=== PATIENT | female | born 1955 | race African-American/Black ===

== ENCOUNTER 2019-07-10 23:59 | Inpatient (IN) | payer MEDICAID ==
[~2019-07-10] VITALS: Ht 165.1 cm; Wt 106.1 kg
[~2019-07-10 23:59] MED LIST: ALLO100T57 PO; BISM262T15 PO; CARV12.545 PO; CLON0.2T PO; ISOS20TA57 PO; LIP40 PO; LOSA50TA41 PO; METO-396 PO
[2019-07-11] MEDS ORDERED: ACETAMINOPHEN 650MG SUPP PR STA (00:18)
[2019-07-11] MEDS ORDERED: SODIUM CHLORIDE 0.9% 1000ML BAG (SEPSIS BOLUS) IV ONE (00:30)
[2019-07-11] MEDS ORDERED: VANCOMYCIN 1 G PREMIX 200 ML IV ONE (00:30)
[2019-07-11] MEDS ORDERED: PIPERACILLIN/TAZ 3.375G PREMIX 50 ML IV ONE (00:30)
[2019-07-11 00:53] LABS: BASOPHILS % 1.3 % (0.0-2.0); EOSINOPHILS % 3.1 % (0.0-5.0); HEMATOCRIT. 26.2 % (36.0-48.0); HEMOGLOBIN. 8.6 g/dL (12.0-16.0); LYMPHOCYTES % 29.5 % (20.0-50.0); MEAN CORPUSCULAR HEMOGLOBIN 29.9 pg (28.0-32.0); MEAN CORPUSCULAR VOLUME 91.3 fL (81.0-99.0); MEAN PLATELET VOLUME 9.7 fl (7.4-10.4); NEUTROPHILS % 58.1 % (40.0-76.0); PLATELET 201 x1000/uL (130-400); RED BLOOD CELL COUNT 2.87 mill/uL (4.2-5.4); RED CELL DISTRIBUTION WIDTH 17.8 % (11.6-14.6)
[2019-07-11 00:56] LABS: PROTHROMBIN TIME 10.7 sec (9.6-11.0)
[2019-07-11 00:59] LABS: CHLORIDE 113 mEq/L (98-107)
[2019-07-11 01:39] LABS: CLARITY URINE TURBID (CLEAR); COLOR URINE YELLOW (YELLOW); KETONES URINE TRACE (NEGATIVE); LEUKOCYTE ESTERASE URINE 3+ (NEGATIVE); NITRITE URINE NEGATIVE (NEGATIVE); OCCULT BLOOD URINE 2+ (NEGATIVE); PH URINE 5.5 (4.5-8.0); PROTEIN URINE 3+ (NEGATIVE); SPECIFIC GRAVITY URINE 1.011 (1.005-1.030); UROBILINOGEN URINE 0.2 E.U./dL (0.2-1.0)
[2019-07-11] MEDS ORDERED: HYDROCODONE/ACETAMINOPHEN 5/325MG TABLET PO PRN (05:30)
[2019-07-11] MEDS ORDERED: NA PHOS,M-B/NA PHOS,DI-BA ENEMA 118ML PR PRN (05:30)
[2019-07-11] MEDS ORDERED: DIPHENHYDRAMINE 50MG/ML VIAL IV PRN (05:30)
[2019-07-11] MEDS ORDERED: MORPHINE SULFATE 2 MG/ML CPJ (NOT FOR IM USE) IV PRN (05:30)
[2019-07-11] MEDS ORDERED: MAGNESIUM/ALUMINUM HYDROXIDE/SIMETHICONE 30ML UDC PO PRN (05:30)
[2019-07-11] MEDS ORDERED: GUAIFENESIN 200MG/10ML SUGAR FREE UDC PO PRN (05:30)
[2019-07-11] MEDS ORDERED: ONDANSETRON HCL 4MG/2ML INJ IV PRN (05:30)
[2019-07-11] MEDS ORDERED: LORAZEPAM 2MG/ML CPJ IV PRN (05:30)
[2019-07-11] MEDS ORDERED: PIPERACILLIN/TAZ 3.375G PREMIX 50 ML IV SCH (05:30)
[2019-07-11] MEDS ORDERED: IPRATROPIUM/ALBUTEROL 0.5-3(2.5)MG/3ML NEB NEB PRN (05:30)
[2019-07-11 09:30] VITALS: BP 189/66
[2019-07-11 10:10] VITALS: BP 189/66
[2019-07-11] MEDS: ASPIRIN 81MG EC TABLET PO SCH (11:40)
[2019-07-11] MEDS: CLONIDINE 0.1MG TABLET PO PRN (11:41)
[2019-07-11] MEDS: ACETAMINOPHEN 325MG TABLET PO PRN ×2 (11:41→13:01)
[2019-07-11] MEDS: ENOXAPARIN 40MG/0.4ML SYR SUBCUT SCH (11:46)
[2019-07-11 12:00] VITALS: BP 184/64
[2019-07-11] MEDS ORDERED: VANCOMYCIN 1500MG in DEXTROSE 5% WATER 250ML IV SCH (12:00)
[2019-07-11] MEDS: SODIUM CHLORIDE 0.45% 1,000 ML IV SCH (12:53)
[2019-07-11] MEDS: PIPERACILLIN/TAZOBACTAM 2.25 G in DEXTROSE 5% WATER 50 ML IV SCH ×2 (15:14→21:48)
[2019-07-11 16:38] VITALS: BP 98/80
[2019-07-11] MEDS ORDERED: DEXTROSE 50% WATER 50ML SYRINGE IV PRN (18:45)
[2019-07-11 20:00] VITALS: BP 208/73
[2019-07-11] MEDS: INSULIN LISPRO 100 UNITS/ML SUBCUT SCH (21:49)
[2019-07-11] MEDS: ATORVASTATIN CALCIUM 20MG TABLET PO SCH (21:49)
[2019-07-11] MEDS: DOCUSATE SODIUM 250MG CAPSULE PO SCH (21:50)
[2019-07-11] MEDS: CLONIDINE 0.2MG TABLET PO SCH (21:51)
[2019-07-11] MEDS: BLOOD SUGAR DIAGNOSTIC STRIP TEST SCH (21:51)
[2019-07-11] MEDS: GABAPENTIN 100MG CAPSULE PO SCH (21:51)
[2019-07-11] MEDS: SODIUM CHLORIDE 0.9% INJ 3ML FLUSH IVF SCH (21:52)
[2019-07-11] MEDS: METOPROLOL TARTRATE 25MG TABLET PO SCH (21:53)
[2019-07-11] MEDS: HYDRALAZINE HCL 100MG TABLET PO SCH (21:54)
[2019-07-12] VITALS: BP 147/54
[2019-07-12] MEDS: SODIUM CHLORIDE 0.45% 1,000 ML IV SCH ×2 (01:17→21:06)
[2019-07-12 04:00] VITALS: BP 162/47
[2019-07-12] MEDS: PIPERACILLIN/TAZOBACTAM 2.25 G in DEXTROSE 5% WATER 50 ML IV SCH ×3 (06:45→21:06)
[2019-07-12] MEDS: BLOOD SUGAR DIAGNOSTIC STRIP TEST SCH ×4 (06:45→21:00)
[2019-07-12] MEDS: CLONIDINE 0.2MG TABLET PO SCH ×3 (06:45→20:57)
[2019-07-12] MEDS: HYDRALAZINE HCL 100MG TABLET PO SCH ×3 (06:45→20:58)
[2019-07-12] MEDS: SODIUM CHLORIDE 0.9% INJ 3ML FLUSH IVF SCH ×3 (06:46→21:08)
[2019-07-12 07:01] LABS: BASOPHILS % 1.1 % (0.0-2.0); EOSINOPHILS % 6.2 % (0.0-5.0); HEMATOCRIT. 26.1 % (36.0-48.0); HEMOGLOBIN. 8.5 g/dL (12.0-16.0); LYMPHOCYTES % 16.7 % (20.0-50.0); MEAN CORPUSCULAR HEMOGLOBIN 29.6 pg (28.0-32.0); MEAN CORPUSCULAR VOLUME 91.4 fL (81.0-99.0); MEAN PLATELET VOLUME 9.8 fl (7.4-10.4); MONOCYTES % 7.3 % (2.0-8.0); NEUTROPHILS % 68.7 % (40.0-76.0); PLATELET 179 x1000/uL (130-400); RED BLOOD CELL COUNT 2.85 mill/uL (4.2-5.4); RED CELL DISTRIBUTION WIDTH 17.7 % (11.6-14.6)
[2019-07-12 07:48] LABS: CHLORIDE 115 mEq/L (98-107)
[2019-07-12 07:58] LABS: T4 FREE 1.14 ng/dL (0.76-1.46)
[2019-07-12 08:00] LABS: HDL CHOLESTEROL 54 mg/dL (40-59)
[2019-07-12 08:01] LABS: LDL CHOLESTEROL 40 mg/dL (5-100)
[2019-07-12 08:12] VITALS: BP 194/70
[2019-07-12] MEDS: ASPIRIN 81MG EC TABLET PO SCH (09:12)
[2019-07-12] MEDS: DOCUSATE SODIUM 250MG CAPSULE PO SCH ×2 (09:12→20:57)
[2019-07-12] MEDS: AMLODIPINE 10MG TABLET PO SCH (09:13)
[2019-07-12] MEDS: METOPROLOL TARTRATE 25MG TABLET PO SCH ×2 (09:16→20:58)
[2019-07-12] MEDS: INSULIN LISPRO 100 UNITS/ML SUBCUT SCH ×4 (09:18→21:00)
[2019-07-12 12:00] VITALS: BP 165/83
[2019-07-12] MEDS: ENOXAPARIN 40MG/0.4ML SYR SUBCUT SCH (13:16)
[2019-07-12 16:00] VITALS: BP 151/41
[2019-07-12 20:00] VITALS: BP 169/65
[2019-07-12] MEDS: GABAPENTIN 100MG CAPSULE PO SCH (20:57)
[2019-07-12] MEDS: ATORVASTATIN CALCIUM 20MG TABLET PO SCH (20:57)
[2019-07-13 00:33] VITALS: BP 131/59
[2019-07-13 04:00] VITALS: BP 145/68
[2019-07-13] MEDS: PIPERACILLIN/TAZOBACTAM 2.25 G in DEXTROSE 5% WATER 50 ML IV SCH ×3 (05:43→21:23)
[2019-07-13] MEDS: CLONIDINE 0.2MG TABLET PO SCH ×3 (05:45→22:00)
[2019-07-13] MEDS: HYDRALAZINE HCL 100MG TABLET PO SCH ×3 (05:45→22:00)
[2019-07-13] MEDS: SODIUM CHLORIDE 0.9% INJ 3ML FLUSH IVF SCH ×3 (05:45→21:24)
[2019-07-13] MEDS: BLOOD SUGAR DIAGNOSTIC STRIP TEST SCH ×4 (05:46→21:26)
[2019-07-13 06:36] LABS: PHOSPHORUS 3.7 mg/dL (2.5-4.9)
[2019-07-13 06:49] LABS: BASOPHILS % 0.5 % (0.0-2.0); EOSINOPHILS % 1.5 % (0.0-5.0); HEMOGLOBIN. 9.3 g/dL (12.0-16.0); LYMPHOCYTES % 9.9 % (20.0-50.0); MEAN CORPUSCULAR HEMOGLOBIN 29.2 pg (28.0-32.0); MEAN CORPUSCULAR VOLUME 91.3 fL (81.0-99.0); MEAN PLATELET VOLUME 10.1 fl (7.4-10.4); MONOCYTES % 6.2 % (2.0-8.0); NEUTROPHILS % 81.9 % (40.0-76.0); PLATELET 199 x1000/uL (130-400); RED BLOOD CELL COUNT 3.18 mill/uL (4.2-5.4); RED CELL DISTRIBUTION WIDTH 17.9 % (11.6-14.6)
[2019-07-13 08:26] VITALS: BP 189/64
[2019-07-13] MEDS: METOPROLOL TARTRATE 25MG TABLET PO SCH ×2 (08:53→21:25)
[2019-07-13] MEDS: AMLODIPINE 10MG TABLET PO SCH ×2 (08:53→08:56)
[2019-07-13] MEDS: ASPIRIN 81MG EC TABLET PO SCH (08:53)
[2019-07-13] MEDS: DOCUSATE SODIUM 250MG CAPSULE PO SCH ×2 (08:53→21:25)
[2019-07-13] MEDS: PANTOT AC/MIN OIL/PET HY-PHL OINT (AQUAPHOR) TOP SCH (08:54)
[2019-07-13] MEDS: INSULIN LISPRO 100 UNITS/ML SUBCUT SCH ×4 (08:55→21:32)
[2019-07-13 12:23] VITALS: BP 183/66
[2019-07-13] MEDS: ENOXAPARIN 40MG/0.4ML SYR SUBCUT SCH (12:46)
[2019-07-13] MEDS: NYSTATIN POWDER 15GM TOP SCH ×2 (13:17→17:28)
[2019-07-13 16:05] VITALS: BP 115/55
[2019-07-13] MEDS: SODIUM CHLORIDE 0.45% 1,000 ML IV SCH (17:29)
[2019-07-13 20:00] VITALS: BP 183/64
[2019-07-13] MEDS: ATORVASTATIN CALCIUM 20MG TABLET PO SCH (21:24)
[2019-07-13] MEDS: GABAPENTIN 100MG CAPSULE PO SCH (21:24)
[2019-07-14] VITALS (7 sets, daily range): BP systolic 102–188; BP diastolic 52–72
[2019-07-14] MEDS: HYDRALAZINE HCL 100MG TABLET PO SCH ×3 (05:29→22:53)
[2019-07-14] MEDS: BLOOD SUGAR DIAGNOSTIC STRIP TEST SCH ×4 (05:30→21:00)
[2019-07-14] MEDS: CLONIDINE 0.2MG TABLET PO SCH (05:30)
[2019-07-14] MEDS: PIPERACILLIN/TAZOBACTAM 2.25 G in DEXTROSE 5% WATER 50 ML IV SCH ×3 (05:31→22:51)
[2019-07-14] MEDS: SODIUM CHLORIDE 0.9% INJ 3ML FLUSH IVF SCH ×3 (05:32→22:52)
[2019-07-14 07:59] LABS: EOSINOPHILS % 6.5 % (0.0-5.0); HEMATOCRIT. 26.4 % (36.0-48.0); HEMOGLOBIN. 8.6 g/dL (12.0-16.0); LYMPHOCYTES % 23.8 % (20.0-50.0); MEAN CORPUSCULAR HEMOGLOBIN 29.5 pg (28.0-32.0); MEAN PLATELET VOLUME 10.3 fl (7.4-10.4); MONOCYTES % 6.6 % (2.0-8.0); NEUTROPHILS % 62.1 % (40.0-76.0); PLATELET 186 x1000/uL (130-400); RED CELL DISTRIBUTION WIDTH 17.7 % (11.6-14.6)
[2019-07-14] MEDS: INSULIN LISPRO 100 UNITS/ML SUBCUT SCH ×4 (08:08→21:00)
[2019-07-14] MEDS: NYSTATIN POWDER 15GM TOP SCH ×3 (08:09→17:02)
[2019-07-14] MEDS: ASPIRIN 81MG EC TABLET PO SCH (08:09)
[2019-07-14] MEDS: PANTOT AC/MIN OIL/PET HY-PHL OINT (AQUAPHOR) TOP SCH (08:09)
[2019-07-14] MEDS: METOPROLOL TARTRATE 25MG TABLET PO SCH ×2 (08:10→22:51)
[2019-07-14] MEDS: DOCUSATE SODIUM 250MG CAPSULE PO SCH ×2 (08:10→22:52)
[2019-07-14] MEDS: AMLODIPINE 10MG TABLET PO SCH (08:10)
[2019-07-14 08:56] LABS: PHOSPHORUS 3.5 mg/dL (2.5-4.9)
[2019-07-14] MEDS: ENOXAPARIN 40MG/0.4ML SYR SUBCUT SCH (11:12)
[2019-07-14] MEDS: SODIUM CHLORIDE 0.45% 1,000 ML IV SCH (12:14)
[2019-07-14] MEDS: CLONIDINE 0.3MG TABLET PO SCH ×2 (14:13→22:51)
[2019-07-14] MEDS: ATORVASTATIN CALCIUM 20MG TABLET PO SCH (22:51)
[2019-07-14] MEDS: GABAPENTIN 100MG CAPSULE PO SCH (22:51)
[2019-07-15] VITALS (7 sets, daily range): BP systolic 161–198; BP diastolic 45–65
[2019-07-15] MEDS: CLONIDINE 0.1MG TABLET PO PRN (03:35)
[2019-07-15] MEDS: CLONIDINE 0.3MG TABLET PO SCH ×3 (05:37→21:38)
[2019-07-15] MEDS: PIPERACILLIN/TAZOBACTAM 2.25 G in DEXTROSE 5% WATER 50 ML IV SCH ×3 (05:37→21:29)
[2019-07-15] MEDS: SODIUM CHLORIDE 0.9% INJ 3ML FLUSH IVF SCH ×3 (05:38→21:36)
[2019-07-15] MEDS: BLOOD SUGAR DIAGNOSTIC STRIP TEST SCH ×4 (05:38→21:36)
[2019-07-15] MEDS: HYDRALAZINE HCL 100MG TABLET PO SCH ×3 (05:39→21:38)
[2019-07-15 07:07] LABS: EOSINOPHILS % 7.4 % (0.0-5.0); HEMATOCRIT. 23.4 % (36.0-48.0); HEMOGLOBIN. 7.6 g/dL (12.0-16.0); LYMPHOCYTES % 26.5 % (20.0-50.0); MEAN CORPUSCULAR HEMOGLOBIN 29.3 pg (28.0-32.0); MEAN CORPUSCULAR VOLUME 90.5 fL (81.0-99.0); MEAN PLATELET VOLUME 10.5 fl (7.4-10.4); MONOCYTES % 7.8 % (2.0-8.0); NEUTROPHILS % 57.3 % (40.0-76.0); PLATELET 173 x1000/uL (130-400); RED BLOOD CELL COUNT 2.59 mill/uL (4.2-5.4); RED CELL DISTRIBUTION WIDTH 18.2 % (11.6-14.6)
[2019-07-15 07:16] LABS: PHOSPHORUS 3.2 mg/dL (2.5-4.9)
[2019-07-15] MEDS: INSULIN LISPRO 100 UNITS/ML SUBCUT SCH ×4 (08:25→21:00)
[2019-07-15] MEDS: NYSTATIN POWDER 15GM TOP SCH ×3 (08:26→16:49)
[2019-07-15] MEDS: METOPROLOL TARTRATE 25MG TABLET PO SCH (08:26)
[2019-07-15] MEDS: ASPIRIN 81MG EC TABLET PO SCH (08:26)
[2019-07-15] MEDS: PANTOT AC/MIN OIL/PET HY-PHL OINT (AQUAPHOR) TOP SCH (08:26)
[2019-07-15] MEDS: AMLODIPINE 10MG TABLET PO SCH (08:27)
[2019-07-15] MEDS: DOCUSATE SODIUM 250MG CAPSULE PO SCH ×2 (08:27→21:38)
[2019-07-15] MEDS: ENOXAPARIN 40MG/0.4ML SYR SUBCUT SCH (10:59)
[2019-07-15] MEDS ORDERED: VANCOMYCIN 1 G PREMIX 200 ML IV SCH (13:00)
[2019-07-15] MEDS ORDERED: EPOETIN ALFA 10000UNITS/ML VIAL SUBCUT SCH (21:00)
[2019-07-15] MEDS: NIFEDIPINE XL 60MG TAB PO SCH (21:37)
[2019-07-15] MEDS: ATORVASTATIN CALCIUM 20MG TABLET PO SCH (21:38)
[2019-07-15] MEDS: METOPROLOL TARTRATE 50MG TABLET PO SCH (21:38)
[2019-07-15] MEDS: GABAPENTIN 100MG CAPSULE PO SCH (21:38)
[2019-07-16] VITALS: BP 108/62
[2019-07-16 04:00] VITALS: BP 157/49
[2019-07-16] MEDS: PIPERACILLIN/TAZOBACTAM 2.25 G in DEXTROSE 5% WATER 50 ML IV SCH ×3 (05:29→23:47)
[2019-07-16] MEDS: CLONIDINE 0.3MG TABLET PO SCH ×3 (06:26→22:30)
[2019-07-16] MEDS: BLOOD SUGAR DIAGNOSTIC STRIP TEST SCH ×4 (06:27→20:46)
[2019-07-16] MEDS: HYDRALAZINE HCL 100MG TABLET PO SCH ×3 (06:27→22:29)
[2019-07-16] MEDS: SODIUM CHLORIDE 0.9% INJ 3ML FLUSH IVF SCH ×2 (06:27→13:38)
[2019-07-16 08:00] VITALS: BP 154/43
[2019-07-16 08:09] LABS: BASOPHILS % 1.8 % (0.0-2.0); EOSINOPHILS % 8.5 % (0.0-5.0); HEMATOCRIT. 22.6 % (36.0-48.0); HEMOGLOBIN. 7.4 g/dL (12.0-16.0); LYMPHOCYTES % 33.2 % (20.0-50.0); MEAN CORPUSCULAR HEMOGLOBIN 29.5 pg (28.0-32.0); MEAN PLATELET VOLUME 10.4 fl (7.4-10.4); MONOCYTES % 7.1 % (2.0-8.0); NEUTROPHILS % 49.4 % (40.0-76.0); PLATELET 162 x1000/uL (130-400); RED BLOOD CELL COUNT 2.51 mill/uL (4.2-5.4); RED CELL DISTRIBUTION WIDTH 18.2 % (11.6-14.6)
[2019-07-16 08:42] LABS: PHOSPHORUS 3.3 mg/dL (2.5-4.9)
[2019-07-16] MEDS: PANTOT AC/MIN OIL/PET HY-PHL OINT (AQUAPHOR) TOP SCH (08:46)
[2019-07-16] MEDS: DOCUSATE SODIUM 250MG CAPSULE PO SCH ×2 (08:46→20:38)
[2019-07-16] MEDS: NYSTATIN POWDER 15GM TOP SCH ×3 (08:46→18:21)
[2019-07-16] MEDS: METOPROLOL TARTRATE 50MG TABLET PO SCH ×2 (08:47→20:37)
[2019-07-16] MEDS: ASPIRIN 81MG EC TABLET PO SCH (08:47)
[2019-07-16] MEDS: NIFEDIPINE XL 60MG TAB PO SCH ×2 (08:48→20:38)
[2019-07-16] MEDS: INSULIN LISPRO 100 UNITS/ML SUBCUT SCH ×4 (08:49→21:21)
[2019-07-16] MEDS: LOSARTAN POTASSIUM 25 MG TABLET PO SCH (10:35)
[2019-07-16] MEDS: ENOXAPARIN 40MG/0.4ML SYR SUBCUT SCH (10:36)
[2019-07-16 12:00] VITALS: BP 167/58
[2019-07-16 16:00] VITALS: BP 155/62
[2019-07-16 20:00] VITALS: BP 158/58
[2019-07-16] MEDS: ATORVASTATIN CALCIUM 20MG TABLET PO SCH (20:38)
[2019-07-16] MEDS: GABAPENTIN 100MG CAPSULE PO SCH (20:38)
[2019-07-17] VITALS: BP 167/70
[2019-07-17 04:00] VITALS: BP 167/56
[2019-07-17] MEDS: CLONIDINE 0.3MG TABLET PO SCH ×3 (05:32→21:52)
[2019-07-17] MEDS: HYDRALAZINE HCL 100MG TABLET PO SCH ×3 (05:32→21:52)
[2019-07-17] MEDS: BLOOD SUGAR DIAGNOSTIC STRIP TEST SCH ×4 (06:28→20:32)
[2019-07-17] MEDS: PIPERACILLIN/TAZOBACTAM 2.25 G in DEXTROSE 5% WATER 50 ML IV SCH (06:28)
[2019-07-17] MEDS: SODIUM CHLORIDE 0.9% INJ 3ML FLUSH IVF SCH ×4 (06:30→21:53)
[2019-07-17 08:00] VITALS: BP 154/63
[2019-07-17 08:05] LABS: BASOPHILS % 1.7 % (0.0-2.0); EOSINOPHILS % 7.6 % (0.0-5.0); HEMATOCRIT. 24.1 % (36.0-48.0); HEMOGLOBIN. 7.8 g/dL (12.0-16.0); LYMPHOCYTES % 27.2 % (20.0-50.0); MEAN CORPUSCULAR HEMOGLOBIN 29.2 pg (28.0-32.0); MEAN CORPUSCULAR VOLUME 89.7 fL (81.0-99.0); MEAN PLATELET VOLUME 10.4 fl (7.4-10.4); MONOCYTES % 7.1 % (2.0-8.0); NEUTROPHILS % 56.4 % (40.0-76.0); PLATELET 182 x1000/uL (130-400); RED BLOOD CELL COUNT 2.68 mill/uL (4.2-5.4); RED CELL DISTRIBUTION WIDTH 17.9 % (11.6-14.6)
[2019-07-17] MEDS: ASPIRIN 81MG EC TABLET PO SCH (08:09)
[2019-07-17] MEDS: METOPROLOL TARTRATE 50MG TABLET PO SCH ×2 (08:09→20:40)
[2019-07-17] MEDS: DOCUSATE SODIUM 250MG CAPSULE PO SCH ×2 (08:09→20:38)
[2019-07-17] MEDS: NIFEDIPINE XL 60MG TAB PO SCH ×2 (08:09→20:39)
[2019-07-17] MEDS: LOSARTAN POTASSIUM 25 MG TABLET PO SCH (08:10)
[2019-07-17] MEDS: INSULIN LISPRO 100 UNITS/ML SUBCUT SCH ×4 (08:16→20:37)
[2019-07-17 08:18] LABS: PHOSPHORUS 3.6 mg/dL (2.5-4.9)
[2019-07-17] MEDS: PANTOT AC/MIN OIL/PET HY-PHL OINT (AQUAPHOR) TOP SCH (08:45)
[2019-07-17] MEDS: NYSTATIN POWDER 15GM TOP SCH ×3 (08:45→17:17)
[2019-07-17] MEDS: ENOXAPARIN 40MG/0.4ML SYR SUBCUT SCH (10:01)
[2019-07-17] MEDS: CLONIDINE 0.1MG TABLET PO PRN (11:28)
[2019-07-17 12:00] VITALS: BP 167/58
[2019-07-17] MEDS: LEVOFLOXACIN 250MG PREMIX 50 ML IV SCH (12:19)
[2019-07-17 16:00] VITALS: BP 149/54
[2019-07-17 20:00] VITALS: BP 126/56
[2019-07-17] MEDS: ATORVASTATIN CALCIUM 20MG TABLET PO SCH (20:38)
[2019-07-17] MEDS: GABAPENTIN 100MG CAPSULE PO SCH (20:40)
[2019-07-18] VITALS: BP 130/51
[2019-07-18 04:00] VITALS: BP 163/50
[2019-07-18] MEDS: HYDRALAZINE HCL 100MG TABLET PO SCH (05:06)
[2019-07-18] MEDS: CLONIDINE 0.3MG TABLET PO SCH ×3 (05:07→22:43)
[2019-07-18] MEDS: SODIUM CHLORIDE 0.9% INJ 3ML FLUSH IVF SCH ×3 (05:11→22:36)
[2019-07-18] MEDS: BLOOD SUGAR DIAGNOSTIC STRIP TEST SCH ×4 (06:54→21:17)
[2019-07-18 07:09] LABS: EOSINOPHILS % 7.8 % (0.0-5.0); HEMATOCRIT. 23.7 % (36.0-48.0); HEMOGLOBIN. 7.8 g/dL (12.0-16.0); LYMPHOCYTES % 32.4 % (20.0-50.0); MEAN CORPUSCULAR HEMOGLOBIN 29.4 pg (28.0-32.0); MEAN CORPUSCULAR VOLUME 89.8 fL (81.0-99.0); MEAN PLATELET VOLUME 10.3 fl (7.4-10.4); MONOCYTES % 7.3 % (2.0-8.0); NEUTROPHILS % 51.5 % (40.0-76.0); PLATELET 195 x1000/uL (130-400); RED BLOOD CELL COUNT 2.64 mill/uL (4.2-5.4); RED CELL DISTRIBUTION WIDTH 17.6 % (11.6-14.6)
[2019-07-18 07:33] LABS: PHOSPHORUS 3.7 mg/dL (2.5-4.9)
[2019-07-18 08:00] VITALS: BP 170/64
[2019-07-18] MEDS: ASPIRIN 81MG EC TABLET PO SCH (08:36)
[2019-07-18] MEDS: DOCUSATE SODIUM 250MG CAPSULE PO SCH ×2 (08:36→21:16)
[2019-07-18] MEDS: LOSARTAN POTASSIUM 25 MG TABLET PO SCH (08:37)
[2019-07-18] MEDS: METOPROLOL TARTRATE 50MG TABLET PO SCH ×2 (08:37→18:16)
[2019-07-18] MEDS: PANTOT AC/MIN OIL/PET HY-PHL OINT (AQUAPHOR) TOP SCH (08:38)
[2019-07-18] MEDS: NYSTATIN POWDER 15GM TOP SCH ×3 (08:38→16:44)
[2019-07-18] MEDS: NIFEDIPINE XL 60MG TAB PO SCH ×2 (08:38→21:17)
[2019-07-18] MEDS: INSULIN LISPRO 100 UNITS/ML SUBCUT SCH ×4 (08:46→21:30)
[2019-07-18] MEDS: ENOXAPARIN 40MG/0.4ML SYR SUBCUT SCH (10:33)
[2019-07-18 12:00] VITALS: BP 180/64
[2019-07-18] MEDS: LEVOFLOXACIN 250MG PREMIX 50 ML IV SCH (12:46)
[2019-07-18] MEDS: CLONIDINE 0.1MG TABLET PO PRN (12:56)
[2019-07-18 16:00] VITALS: BP 173/68
[2019-07-18] MEDS ORDERED: AMLODIPINE 10MG TABLET PO STA (17:55)
[2019-07-18] MEDS ORDERED: LISINOPRIL 10MG TABLET PO STA (17:55)
[2019-07-18] MEDS ORDERED: CLONIDINE 0.2MG TABLET PO PRN ×2 (18:15)
[2019-07-18] MEDS: MINOXIDIL 2.5MG TABLET PO SCH (21:16)
[2019-07-18] MEDS: ATORVASTATIN CALCIUM 20MG TABLET PO SCH (21:16)
[2019-07-18] MEDS: GABAPENTIN 100MG CAPSULE PO SCH (21:17)
[2019-07-19] VITALS: BP 151/57
[2019-07-19 04:00] VITALS: BP 159/60
[2019-07-19] MEDS: METOPROLOL TARTRATE 50MG TABLET PO SCH ×2 (05:12→17:23)
[2019-07-19] MEDS: SODIUM CHLORIDE 0.9% INJ 3ML FLUSH IVF SCH ×3 (05:13→20:31)
[2019-07-19] MEDS: CLONIDINE 0.3MG TABLET PO SCH ×3 (05:35→23:05)
[2019-07-19 07:05] LABS: BASOPHILS % 0.9 % (0.0-2.0); EOSINOPHILS % 7.9 % (0.0-5.0); HEMATOCRIT. 23.6 % (36.0-48.0); HEMOGLOBIN. 7.6 g/dL (12.0-16.0); LYMPHOCYTES % 30.8 % (20.0-50.0); MEAN CORPUSCULAR HEMOGLOBIN 29.2 pg (28.0-32.0); MEAN CORPUSCULAR VOLUME 90.4 fL (81.0-99.0); MEAN PLATELET VOLUME 10.2 fl (7.4-10.4); MONOCYTES % 7.9 % (2.0-8.0); NEUTROPHILS % 52.5 % (40.0-76.0); PLATELET 211 x1000/uL (130-400); RED BLOOD CELL COUNT 2.61 mill/uL (4.2-5.4); RED CELL DISTRIBUTION WIDTH 17.7 % (11.6-14.6)
[2019-07-19 07:15] LABS: CHLORIDE 113 mEq/L (98-107)
[2019-07-19 07:25] LABS: PHOSPHORUS 3.7 mg/dL (2.5-4.9)
[2019-07-19] MEDS: BLOOD SUGAR DIAGNOSTIC STRIP TEST SCH ×4 (07:30→20:19)
[2019-07-19 08:00] VITALS: BP 173/61
[2019-07-19] MEDS: NIFEDIPINE XL 60MG TAB PO SCH ×2 (08:46→20:29)
[2019-07-19] MEDS: ASPIRIN 81MG EC TABLET PO SCH (08:46)
[2019-07-19] MEDS: MINOXIDIL 2.5MG TABLET PO SCH ×2 (08:46→20:29)
[2019-07-19] MEDS: PANTOT AC/MIN OIL/PET HY-PHL OINT (AQUAPHOR) TOP SCH (08:47)
[2019-07-19] MEDS: DOCUSATE SODIUM 250MG CAPSULE PO SCH ×2 (08:47→20:24)
[2019-07-19] MEDS: LOSARTAN POTASSIUM 25 MG TABLET PO SCH (08:47)
[2019-07-19] MEDS: NYSTATIN POWDER 15GM TOP SCH ×3 (08:47→16:41)
[2019-07-19] MEDS: INSULIN LISPRO 100 UNITS/ML SUBCUT SCH ×4 (08:48→20:19)
[2019-07-19] MEDS ORDERED: AMLODIPINE 10MG TABLET PO SCH (09:00)
[2019-07-19] MEDS ORDERED: LISINOPRIL 10MG TABLET PO SCH (09:00)
[2019-07-19] MEDS: ENOXAPARIN 40MG/0.4ML SYR SUBCUT SCH (10:20)
[2019-07-19] MEDS: LEVOFLOXACIN 250MG TABLET PO SCH (10:20)
[2019-07-19 12:00] VITALS: BP 167/55
[2019-07-19 16:00] VITALS: BP 166/53
[2019-07-19 20:00] VITALS: BP 135/50
[2019-07-19] MEDS: GABAPENTIN 100MG CAPSULE PO SCH (20:24)
[2019-07-19] MEDS: ATORVASTATIN CALCIUM 20MG TABLET PO SCH (20:29)
[2019-07-20] VITALS: BP 159/53
[2019-07-20 04:00] VITALS: BP 146/47
[2019-07-20] MEDS: SODIUM CHLORIDE 0.9% INJ 3ML FLUSH IVF SCH ×3 (05:15→22:15)
[2019-07-20] MEDS: METOPROLOL TARTRATE 50MG TABLET PO SCH ×2 (06:07→18:03)
[2019-07-20] MEDS: BLOOD SUGAR DIAGNOSTIC STRIP TEST SCH ×4 (06:08→20:40)
[2019-07-20] MEDS: CLONIDINE 0.3MG TABLET PO SCH ×3 (06:08→22:12)
[2019-07-20] MEDS: INSULIN LISPRO 100 UNITS/ML SUBCUT SCH ×4 (07:50→21:18)
[2019-07-20 08:00] VITALS: BP 158/47
[2019-07-20] MEDS: LOSARTAN POTASSIUM 25 MG TABLET PO SCH (09:28)
[2019-07-20] MEDS: ASPIRIN 81MG EC TABLET PO SCH (09:28)
[2019-07-20] MEDS: DOCUSATE SODIUM 250MG CAPSULE PO SCH ×2 (09:28→20:06)
[2019-07-20] MEDS: PANTOT AC/MIN OIL/PET HY-PHL OINT (AQUAPHOR) TOP SCH (09:33)
[2019-07-20] MEDS: NYSTATIN POWDER 15GM TOP SCH ×3 (09:33→18:02)
[2019-07-20] MEDS: NIFEDIPINE XL 60MG TAB PO SCH ×2 (11:08→20:07)
[2019-07-20] MEDS: MINOXIDIL 2.5MG TABLET PO SCH ×2 (11:08→20:07)
[2019-07-20] MEDS: ENOXAPARIN 40MG/0.4ML SYR SUBCUT SCH (11:09)
[2019-07-20 12:00] VITALS: BP 191/61
[2019-07-20] MEDS: LEVOFLOXACIN 250MG TABLET PO SCH (12:40)
[2019-07-20 16:00] VITALS: BP 197/56
[2019-07-20 20:00] VITALS: BP 144/49
[2019-07-20] MEDS: GABAPENTIN 100MG CAPSULE PO SCH (20:06)
[2019-07-20] MEDS: ATORVASTATIN CALCIUM 20MG TABLET PO SCH (20:06)
[2019-07-21] VITALS: BP 150/50
[2019-07-21 04:00] VITALS: BP 140/45
[2019-07-21] MEDS: CLONIDINE 0.3MG TABLET PO SCH ×3 (06:00→22:49)
[2019-07-21] MEDS: METOPROLOL TARTRATE 50MG TABLET PO SCH ×2 (06:01→17:40)
[2019-07-21] MEDS: BLOOD SUGAR DIAGNOSTIC STRIP TEST SCH ×4 (06:08→20:34)
[2019-07-21 07:09] LABS: BASOPHILS % 1.8 % (0.0-2.0); EOSINOPHILS % 7.8 % (0.0-5.0); HEMATOCRIT. 22.6 % (36.0-48.0); HEMOGLOBIN. 7.3 g/dL (12.0-16.0); LYMPHOCYTES % 38.8 % (20.0-50.0); MEAN CORPUSCULAR HEMOGLOBIN 29.2 pg (28.0-32.0); MEAN CORPUSCULAR VOLUME 90.8 fL (81.0-99.0); MEAN PLATELET VOLUME 9.5 fl (7.4-10.4); MONOCYTES % 7.6 % (2.0-8.0); PLATELET 242 x1000/uL (130-400); RED BLOOD CELL COUNT 2.48 mill/uL (4.2-5.4); RED CELL DISTRIBUTION WIDTH 17.7 % (11.6-14.6)
[2019-07-21 07:35] LABS: PHOSPHORUS 4.1 mg/dL (2.5-4.9)
[2019-07-21 08:00] VITALS: BP 181/89
[2019-07-21] MEDS: DOCUSATE SODIUM 250MG CAPSULE PO SCH ×2 (09:22→20:34)
[2019-07-21] MEDS: NIFEDIPINE XL 60MG TAB PO SCH ×2 (09:22→20:37)
[2019-07-21] MEDS: MINOXIDIL 2.5MG TABLET PO SCH ×2 (09:23→20:38)
[2019-07-21] MEDS: LOSARTAN POTASSIUM 25 MG TABLET PO SCH (09:23)
[2019-07-21] MEDS: ASPIRIN 81MG EC TABLET PO SCH (09:24)
[2019-07-21] MEDS: NYSTATIN POWDER 15GM TOP SCH ×3 (09:24→17:37)
[2019-07-21] MEDS: PANTOT AC/MIN OIL/PET HY-PHL OINT (AQUAPHOR) TOP SCH (09:24)
[2019-07-21] MEDS: INSULIN LISPRO 100 UNITS/ML SUBCUT SCH ×4 (09:29→20:34)
[2019-07-21] MEDS: CITRIC ACID/SODIUM CITRATE SOLN 30ML UDC PO SCH ×3 (10:48→17:37)
[2019-07-21] MEDS: LEVOFLOXACIN 250MG TABLET PO SCH (10:48)
[2019-07-21] MEDS: ENOXAPARIN 40MG/0.4ML SYR SUBCUT SCH (10:49)
[2019-07-21 12:00] VITALS: BP 169/52
[2019-07-21] MEDS ORDERED: SODIUM POLYSTYRENE SULFONATE 15 G/60 ML BOT PO SCH ×2 (14:00→16:45)
[2019-07-21 16:00] VITALS: BP 145/45
[2019-07-21 20:00] VITALS: BP 137/54
[2019-07-21] MEDS: GABAPENTIN 100MG CAPSULE PO SCH (20:34)
[2019-07-21] MEDS: ATORVASTATIN CALCIUM 20MG TABLET PO SCH (20:35)
[2019-07-21] MEDS: SODIUM CHLORIDE 0.9% INJ 3ML FLUSH IVF SCH (22:43)
[2019-07-22] VITALS: BP 155/59
[2019-07-22 04:00] VITALS: BP 153/55
[2019-07-22] MEDS: CLONIDINE 0.3MG TABLET PO SCH ×3 (05:22→21:51)
[2019-07-22] MEDS: METOPROLOL TARTRATE 50MG TABLET PO SCH ×2 (05:22→17:45)
[2019-07-22] MEDS: SODIUM CHLORIDE 0.9% INJ 3ML FLUSH IVF SCH ×3 (05:23→21:51)
[2019-07-22] MEDS: BLOOD SUGAR DIAGNOSTIC STRIP TEST SCH ×4 (06:14→21:50)
[2019-07-22 06:23] LABS: EOSINOPHILS % 5.1 % (0.0-5.0); HEMATOCRIT. 24.4 % (36.0-48.0); HEMOGLOBIN. 7.9 g/dL (12.0-16.0); LYMPHOCYTES % 24.8 % (20.0-50.0); MEAN CORPUSCULAR HEMOGLOBIN 29.4 pg (28.0-32.0); MEAN CORPUSCULAR VOLUME 91.2 fL (81.0-99.0); MEAN PLATELET VOLUME 9.3 fl (7.4-10.4); MONOCYTES % 7.1 % (2.0-8.0); PLATELET 275 x1000/uL (130-400); RED BLOOD CELL COUNT 2.67 mill/uL (4.2-5.4); RED CELL DISTRIBUTION WIDTH 17.9 % (11.6-14.6)
[2019-07-22 08:00] VITALS: BP 144/47
[2019-07-22] MEDS: NIFEDIPINE XL 60MG TAB PO SCH ×2 (08:41→21:05)
[2019-07-22] MEDS: CITRIC ACID/SODIUM CITRATE SOLN 30ML UDC PO SCH ×3 (08:41→17:00)
[2019-07-22] MEDS: DOCUSATE SODIUM 250MG CAPSULE PO SCH ×2 (08:42→20:50)
[2019-07-22] MEDS: LOSARTAN POTASSIUM 25 MG TABLET PO SCH (08:42)
[2019-07-22] MEDS: ASPIRIN 81MG EC TABLET PO SCH (08:42)
[2019-07-22] MEDS: MINOXIDIL 2.5MG TABLET PO SCH ×2 (08:42→21:05)
[2019-07-22] MEDS: INSULIN LISPRO 100 UNITS/ML SUBCUT SCH ×4 (08:45→21:27)
[2019-07-22] MEDS: NYSTATIN POWDER 15GM TOP SCH ×3 (08:46→17:44)
[2019-07-22] MEDS: PANTOT AC/MIN OIL/PET HY-PHL OINT (AQUAPHOR) TOP SCH (08:46)
[2019-07-22] MEDS: ENOXAPARIN 40MG/0.4ML SYR SUBCUT SCH (10:34)
[2019-07-22] MEDS: LEVOFLOXACIN 250MG TABLET PO SCH (10:34)
[2019-07-22 12:00] VITALS: BP 128/47
[2019-07-22 16:00] VITALS: BP 118/43
[2019-07-22 20:00] VITALS: BP 141/46
[2019-07-22] MEDS: ATORVASTATIN CALCIUM 20MG TABLET PO SCH (20:50)
[2019-07-22] MEDS: GABAPENTIN 100MG CAPSULE PO SCH (20:51)
[2019-07-22] MEDS ORDERED: EPOETIN ALFA 10000UNITS/ML VIAL SUBCUT SCH (21:00)
[2019-07-23] VITALS: BP 168/68
[2019-07-23 04:00] VITALS: BP 127/66
[2019-07-23] MEDS: SODIUM CHLORIDE 0.9% INJ 3ML FLUSH IVF SCH ×3 (05:51→21:31)
[2019-07-23] MEDS: METOPROLOL TARTRATE 50MG TABLET PO SCH ×2 (05:52→17:45)
[2019-07-23] MEDS: CLONIDINE 0.3MG TABLET PO SCH ×3 (05:53→21:31)
[2019-07-23] MEDS: BLOOD SUGAR DIAGNOSTIC STRIP TEST SCH ×4 (06:53→20:44)
[2019-07-23] MEDS: INSULIN LISPRO 100 UNITS/ML SUBCUT SCH ×4 (07:50→20:45)
[2019-07-23 08:00] VITALS: BP 124/42
[2019-07-23] MEDS: CITRIC ACID/SODIUM CITRATE SOLN 30ML UDC PO SCH ×3 (09:00→17:00)
[2019-07-23] MEDS: DOCUSATE SODIUM 250MG CAPSULE PO SCH ×2 (09:00→20:43)
[2019-07-23] MEDS: LOSARTAN POTASSIUM 25 MG TABLET PO SCH (10:07)
[2019-07-23] MEDS: DOCUSATE SODIUM 100MG CAPSULE PO PRN (10:07)
[2019-07-23] MEDS: MINOXIDIL 2.5MG TABLET PO SCH ×2 (10:08→20:44)
[2019-07-23] MEDS: NIFEDIPINE XL 60MG TAB PO SCH ×2 (10:08→20:44)
[2019-07-23] MEDS: LEVOFLOXACIN 250MG TABLET PO SCH (10:08)
[2019-07-23] MEDS: ASPIRIN 81MG EC TABLET PO SCH (10:08)
[2019-07-23] MEDS: NYSTATIN POWDER 15GM TOP SCH ×3 (10:09→17:45)
[2019-07-23] MEDS: PANTOT AC/MIN OIL/PET HY-PHL OINT (AQUAPHOR) TOP SCH (10:09)
[2019-07-23] MEDS: ENOXAPARIN 40MG/0.4ML SYR SUBCUT SCH (10:11)
[2019-07-23 12:00] VITALS: BP 144/50
[2019-07-23 16:00] VITALS: BP 121/49
[2019-07-23 20:00] VITALS: BP 145/52
[2019-07-23] MEDS: ATORVASTATIN CALCIUM 20MG TABLET PO SCH (20:43)
[2019-07-23] MEDS: GABAPENTIN 100MG CAPSULE PO SCH (20:44)
[2019-07-24] VITALS (7 sets, daily range): BP systolic 120–160; BP diastolic 39–66
[2019-07-24] MEDS: SODIUM CHLORIDE 0.9% INJ 3ML FLUSH IVF SCH ×3 (05:31→22:17)
[2019-07-24] MEDS: CLONIDINE 0.3MG TABLET PO SCH ×3 (05:32→22:00)
[2019-07-24] MEDS: METOPROLOL TARTRATE 50MG TABLET PO SCH ×2 (05:32→18:14)
[2019-07-24 06:32] LABS: BASOPHILS % 1.6 % (0.0-2.0); EOSINOPHILS % 5.4 % (0.0-5.0); HEMATOCRIT. 21.5 % (36.0-48.0); LYMPHOCYTES % 41.6 % (20.0-50.0); MEAN CORPUSCULAR HEMOGLOBIN 29.9 pg (28.0-32.0); MEAN CORPUSCULAR VOLUME 91.6 fL (81.0-99.0); MEAN PLATELET VOLUME 9.8 fl (7.4-10.4); MONOCYTES % 8.6 % (2.0-8.0); NEUTROPHILS % 42.8 % (40.0-76.0); PLATELET 236 x1000/uL (130-400); RED BLOOD CELL COUNT 2.34 mill/uL (4.2-5.4); RED CELL DISTRIBUTION WIDTH 18.6 % (11.6-14.6)
[2019-07-24] MEDS: BLOOD SUGAR DIAGNOSTIC STRIP TEST SCH ×4 (06:55→21:46)
[2019-07-24 07:24] LABS: PHOSPHORUS 4.3 mg/dL (2.5-4.9)
[2019-07-24] MEDS: INSULIN LISPRO 100 UNITS/ML SUBCUT SCH ×4 (07:50→21:00)
[2019-07-24] MEDS: CITRIC ACID/SODIUM CITRATE SOLN 30ML UDC PO SCH ×3 (09:00→17:00)
[2019-07-24] MEDS: DOCUSATE SODIUM 250MG CAPSULE PO SCH ×2 (09:44→21:43)
[2019-07-24] MEDS: ASPIRIN 81MG EC TABLET PO SCH (09:44)
[2019-07-24] MEDS: NIFEDIPINE XL 60MG TAB PO SCH ×2 (09:44→21:43)
[2019-07-24] MEDS: LOSARTAN POTASSIUM 25 MG TABLET PO SCH (09:44)
[2019-07-24] MEDS: PANTOT AC/MIN OIL/PET HY-PHL OINT (AQUAPHOR) TOP SCH (09:45)
[2019-07-24] MEDS: NYSTATIN POWDER 15GM TOP SCH ×3 (09:45→17:08)
[2019-07-24] MEDS: MINOXIDIL 2.5MG TABLET PO SCH ×2 (09:45→21:45)
[2019-07-24] MEDS: ENOXAPARIN 40MG/0.4ML SYR SUBCUT SCH (11:00)
[2019-07-24] MEDS: LEVOFLOXACIN 250MG TABLET PO SCH (11:29)
[2019-07-24] MEDS: GABAPENTIN 100MG CAPSULE PO SCH (21:44)
[2019-07-24] MEDS: ATORVASTATIN CALCIUM 20MG TABLET PO SCH (21:44)
[2019-07-25] VITALS: BP 132/44
[2019-07-25 00:07] VITALS: BP 132/44
[2019-07-25 00:42] VITALS: BP 132/43
[2019-07-25 01:47] VITALS: BP 142/40
[2019-07-25 03:26] LABS: BASOPHILS % 2.2 % (0.0-2.0); EOSINOPHILS % 4.9 % (0.0-5.0); HEMATOCRIT. 24.5 % (36.0-48.0); HEMOGLOBIN. 8.1 g/dL (12.0-16.0); LYMPHOCYTES % 38.5 % (20.0-50.0); MEAN CORPUSCULAR HEMOGLOBIN 29.4 pg (28.0-32.0); MEAN CORPUSCULAR VOLUME 89.3 fL (81.0-99.0); MEAN PLATELET VOLUME 9.2 fl (7.4-10.4); MONOCYTES % 8.5 % (2.0-8.0); NEUTROPHILS % 45.9 % (40.0-76.0); PLATELET 244 x1000/uL (130-400); RED BLOOD CELL COUNT 2.75 mill/uL (4.2-5.4); RED CELL DISTRIBUTION WIDTH 18.5 % (11.6-14.6)
[2019-07-25 03:40] LABS: PHOSPHORUS 4.1 mg/dL (2.5-4.9)
[2019-07-25 04:00] VITALS: BP 145/43
[2019-07-25] MEDS: CLONIDINE 0.3MG TABLET PO SCH ×3 (05:56→22:57)
[2019-07-25] MEDS: METOPROLOL TARTRATE 50MG TABLET PO SCH ×2 (05:57→17:18)
[2019-07-25] MEDS: SODIUM CHLORIDE 0.9% INJ 3ML FLUSH IVF SCH ×3 (06:03→21:05)
[2019-07-25] MEDS: BLOOD SUGAR DIAGNOSTIC STRIP TEST SCH ×4 (06:36→20:54)
[2019-07-25] MEDS: INSULIN LISPRO 100 UNITS/ML SUBCUT SCH ×4 (07:50→20:58)
[2019-07-25] MEDS: LOSARTAN POTASSIUM 25 MG TABLET PO SCH ×2 (08:59→09:00)
[2019-07-25] MEDS: ASPIRIN 81MG EC TABLET PO SCH (08:59)
[2019-07-25] MEDS: DOCUSATE SODIUM 100MG CAPSULE PO PRN (08:59)
[2019-07-25] MEDS: MINOXIDIL 2.5MG TABLET PO SCH ×2 (09:00→21:03)
[2019-07-25] MEDS: NIFEDIPINE XL 60MG TAB PO SCH ×2 (09:00→21:02)
[2019-07-25] MEDS: CITRIC ACID/SODIUM CITRATE SOLN 30ML UDC PO SCH ×3 (09:02→12:44)
[2019-07-25] MEDS: NYSTATIN POWDER 15GM TOP SCH ×3 (09:02→16:16)
[2019-07-25] MEDS: DOCUSATE SODIUM 250MG CAPSULE PO SCH ×2 (09:04→20:50)
[2019-07-25] MEDS: PANTOT AC/MIN OIL/PET HY-PHL OINT (AQUAPHOR) TOP SCH (09:05)
[2019-07-25] MEDS: ENOXAPARIN 40MG/0.4ML SYR SUBCUT SCH (11:27)
[2019-07-25 20:00] VITALS: BP 149/47
[2019-07-25] MEDS: ATORVASTATIN CALCIUM 20MG TABLET PO SCH (20:49)
[2019-07-25] MEDS: GABAPENTIN 100MG CAPSULE PO SCH (20:50)
[2019-07-26] VITALS: BP 143/52
[2019-07-26 04:00] VITALS: BP 144/48
[2019-07-26] MEDS: METOPROLOL TARTRATE 50MG TABLET PO SCH ×2 (05:15→17:00)
[2019-07-26] MEDS: CLONIDINE 0.3MG TABLET PO SCH ×3 (05:17→21:21)
[2019-07-26] MEDS: SODIUM CHLORIDE 0.9% INJ 3ML FLUSH IVF SCH ×3 (05:20→21:40)
[2019-07-26] MEDS: BLOOD SUGAR DIAGNOSTIC STRIP TEST SCH ×4 (06:22→21:28)
[2019-07-26 06:25] LABS: BASOPHILS % 1.5 % (0.0-2.0); EOSINOPHILS % 6.2 % (0.0-5.0); HEMATOCRIT. 24.3 % (36.0-48.0); HEMOGLOBIN. 7.9 g/dL (12.0-16.0); LYMPHOCYTES % 33.8 % (20.0-50.0); MEAN CORPUSCULAR HEMOGLOBIN 29.3 pg (28.0-32.0); MEAN PLATELET VOLUME 9.3 fl (7.4-10.4); MONOCYTES % 7.2 % (2.0-8.0); NEUTROPHILS % 51.3 % (40.0-76.0); PLATELET 225 x1000/uL (130-400); RED CELL DISTRIBUTION WIDTH 18.5 % (11.6-14.6)
[2019-07-26 06:40] LABS: PHOSPHORUS 4.1 mg/dL (2.5-4.9)
[2019-07-26 08:00] VITALS: BP_SYST 134; BP_SYST 150; BP_DIAS 42; BP_DIAS 53
[2019-07-26] MEDS: MINOXIDIL 2.5MG TABLET PO SCH ×2 (08:49→21:21)
[2019-07-26] MEDS: NIFEDIPINE XL 60MG TAB PO SCH ×2 (08:49→21:21)
[2019-07-26] MEDS: LOSARTAN POTASSIUM 25 MG TABLET PO SCH (08:50)
[2019-07-26] MEDS: DOCUSATE SODIUM 250MG CAPSULE PO SCH ×2 (08:50→21:21)
[2019-07-26] MEDS: ASPIRIN 81MG EC TABLET PO SCH (08:50)
[2019-07-26] MEDS: INSULIN LISPRO 100 UNITS/ML SUBCUT SCH ×4 (08:52→21:18)
[2019-07-26] MEDS: NYSTATIN POWDER 15GM TOP SCH ×3 (08:53→18:04)
[2019-07-26] MEDS: PANTOT AC/MIN OIL/PET HY-PHL OINT (AQUAPHOR) TOP SCH (08:53)
[2019-07-26] MEDS: CITRIC ACID/SODIUM CITRATE SOLN 30ML UDC PO SCH ×3 (09:00→17:00)
[2019-07-26] MEDS: ENOXAPARIN 40MG/0.4ML SYR SUBCUT SCH (10:34)
[2019-07-26 12:00] VITALS: BP 134/42
[2019-07-26 16:00] VITALS: BP 131/42
[2019-07-26 20:00] VITALS: BP 141/51
[2019-07-26] MEDS: GABAPENTIN 100MG CAPSULE PO SCH (21:21)
[2019-07-26] MEDS: ATORVASTATIN CALCIUM 20MG TABLET PO SCH (21:21)
[2019-07-27] VITALS: BP 128/50
[2019-07-27 04:00] VITALS: BP 146/55
[2019-07-27] MEDS: SODIUM CHLORIDE 0.9% INJ 3ML FLUSH IVF SCH ×3 (06:12→22:00)
[2019-07-27] MEDS: CLONIDINE 0.3MG TABLET PO SCH ×2 (06:13→13:17)
[2019-07-27] MEDS: METOPROLOL TARTRATE 50MG TABLET PO SCH ×2 (06:13→18:00)
[2019-07-27 06:42] LABS: BASOPHILS % 1.3 % (0.0-2.0); HEMATOCRIT. 25.3 % (36.0-48.0); HEMOGLOBIN. 8.4 g/dL (12.0-16.0); LYMPHOCYTES % 40.8 % (20.0-50.0); MEAN CORPUSCULAR HEMOGLOBIN 29.6 pg (28.0-32.0); MEAN CORPUSCULAR VOLUME 89.3 fL (81.0-99.0); MEAN PLATELET VOLUME 9.2 fl (7.4-10.4); MONOCYTES % 7.9 % (2.0-8.0); PLATELET 232 x1000/uL (130-400); RED BLOOD CELL COUNT 2.84 mill/uL (4.2-5.4); RED CELL DISTRIBUTION WIDTH 19.2 % (11.6-14.6)
[2019-07-27 07:15] LABS: PHOSPHORUS 4.2 mg/dL (2.5-4.9)
[2019-07-27] MEDS: BLOOD SUGAR DIAGNOSTIC STRIP TEST SCH ×4 (07:49→21:00)
[2019-07-27] MEDS: DOCUSATE SODIUM 250MG CAPSULE PO SCH ×2 (09:00→21:00)
[2019-07-27] MEDS: ASPIRIN 81MG EC TABLET PO SCH (09:01)
[2019-07-27] MEDS: LOSARTAN POTASSIUM 25 MG TABLET PO SCH (09:01)
[2019-07-27] MEDS: MINOXIDIL 2.5MG TABLET PO SCH (09:02)
[2019-07-27] MEDS: NIFEDIPINE XL 60MG TAB PO SCH ×2 (09:02→21:00)
[2019-07-27] MEDS: PANTOT AC/MIN OIL/PET HY-PHL OINT (AQUAPHOR) TOP SCH (09:02)
[2019-07-27] MEDS: CITRIC ACID/SODIUM CITRATE SOLN 30ML UDC PO SCH ×3 (09:03→17:00)
[2019-07-27] MEDS: NYSTATIN POWDER 15GM TOP SCH ×3 (09:03→17:00)
[2019-07-27] MEDS: INSULIN LISPRO 100 UNITS/ML SUBCUT SCH ×3 (09:12→18:21)
[2019-07-27] MEDS: ENOXAPARIN 40MG/0.4ML SYR SUBCUT SCH (10:57)
[2019-07-27 20:00] VITALS: BP 149/41
[2019-07-27] MEDS: GABAPENTIN 100MG CAPSULE PO SCH (21:00)
[2019-07-28] VITALS: BP 125/49
[2019-07-28] MEDS: CLONIDINE 0.3MG TABLET PO SCH ×4 (03:57→22:57)
[2019-07-28] MEDS: MINOXIDIL 2.5MG TABLET PO SCH ×3 (03:58→21:10)
[2019-07-28] MEDS: ATORVASTATIN CALCIUM 20MG TABLET PO SCH ×2 (03:58→21:10)
[2019-07-28 04:00] VITALS: BP 147/53
[2019-07-28] MEDS: INSULIN LISPRO 100 UNITS/ML SUBCUT SCH ×5 (04:05→21:16)
[2019-07-28] MEDS: METOPROLOL TARTRATE 50MG TABLET PO SCH ×2 (06:20→17:54)
[2019-07-28] MEDS: SODIUM CHLORIDE 0.9% INJ 3ML FLUSH IVF SCH ×3 (06:22→22:00)
[2019-07-28] MEDS: BLOOD SUGAR DIAGNOSTIC STRIP TEST SCH ×4 (06:22→21:10)
[2019-07-28 07:06] LABS: BASOPHILS % 1.3 % (0.0-2.0); EOSINOPHILS % 6.9 % (0.0-5.0); HEMATOCRIT. 25.5 % (36.0-48.0); HEMOGLOBIN. 8.2 g/dL (12.0-16.0); LYMPHOCYTES % 34.3 % (20.0-50.0); MEAN CORPUSCULAR HEMOGLOBIN 29.1 pg (28.0-32.0); MEAN CORPUSCULAR VOLUME 90.3 fL (81.0-99.0); MEAN PLATELET VOLUME 9.5 fl (7.4-10.4); MONOCYTES % 6.9 % (2.0-8.0); NEUTROPHILS % 50.6 % (40.0-76.0); PLATELET 238 x1000/uL (130-400); RED BLOOD CELL COUNT 2.82 mill/uL (4.2-5.4); RED CELL DISTRIBUTION WIDTH 19.5 % (11.6-14.6)
[2019-07-28 08:00] VITALS: BP 132/42
[2019-07-28] MEDS: LOSARTAN POTASSIUM 25 MG TABLET PO SCH (08:54)
[2019-07-28] MEDS: CITRIC ACID/SODIUM CITRATE SOLN 30ML UDC PO SCH ×3 (08:54→17:00)
[2019-07-28] MEDS: PANTOT AC/MIN OIL/PET HY-PHL OINT (AQUAPHOR) TOP SCH (08:55)
[2019-07-28] MEDS: NIFEDIPINE XL 60MG TAB PO SCH ×2 (08:55→21:09)
[2019-07-28] MEDS: NYSTATIN POWDER 15GM TOP SCH ×3 (08:55→17:26)
[2019-07-28 08:57] LABS: PHOSPHORUS 3.9 mg/dL (2.5-4.9)
[2019-07-28] MEDS: ASPIRIN 81MG EC TABLET PO SCH (08:57)
[2019-07-28] MEDS: DOCUSATE SODIUM 250MG CAPSULE PO SCH ×2 (08:57→21:09)
[2019-07-28] MEDS: ENOXAPARIN 40MG/0.4ML SYR SUBCUT SCH (10:44)
[2019-07-28 12:00] VITALS: BP 176/57
[2019-07-28 14:00] VITALS: BP 137/45
[2019-07-28 20:00] VITALS: BP 136/47
[2019-07-28] MEDS: GABAPENTIN 100MG CAPSULE PO SCH (21:09)
[2019-07-29] VITALS: BP 151/43
[2019-07-29 04:00] VITALS: BP 149/42
[2019-07-29] MEDS: METOPROLOL TARTRATE 50MG TABLET PO SCH ×2 (06:33→17:49)
[2019-07-29] MEDS: BLOOD SUGAR DIAGNOSTIC STRIP TEST SCH ×4 (06:33→20:06)
[2019-07-29] MEDS: CLONIDINE 0.3MG TABLET PO SCH ×3 (06:33→21:55)
[2019-07-29] MEDS: SODIUM CHLORIDE 0.9% INJ 3ML FLUSH IVF SCH ×3 (06:34→21:53)
[2019-07-29 07:53] LABS: BASOPHILS % 1.3 % (0.0-2.0); EOSINOPHILS % 6.9 % (0.0-5.0); HEMATOCRIT. 25.4 % (36.0-48.0); HEMOGLOBIN. 8.2 g/dL (12.0-16.0); LYMPHOCYTES % 38.2 % (20.0-50.0); MEAN CORPUSCULAR HEMOGLOBIN 29.2 pg (28.0-32.0); MEAN CORPUSCULAR VOLUME 90.5 fL (81.0-99.0); MEAN PLATELET VOLUME 9.9 fl (7.4-10.4); MONOCYTES % 7.6 % (2.0-8.0); PLATELET 203 x1000/uL (130-400); RED BLOOD CELL COUNT 2.81 mill/uL (4.2-5.4); RED CELL DISTRIBUTION WIDTH 19.4 % (11.6-14.6)
[2019-07-29 08:00] VITALS: BP 155/45
[2019-07-29] MEDS: CITRIC ACID/SODIUM CITRATE SOLN 30ML UDC PO SCH ×3 (08:25→17:00)
[2019-07-29] MEDS: NIFEDIPINE XL 60MG TAB PO SCH ×2 (08:26→20:16)
[2019-07-29] MEDS: DOCUSATE SODIUM 250MG CAPSULE PO SCH ×2 (08:29→20:14)
[2019-07-29] MEDS: MINOXIDIL 2.5MG TABLET PO SCH ×2 (08:29→20:15)
[2019-07-29] MEDS: LOSARTAN POTASSIUM 25 MG TABLET PO SCH (08:30)
[2019-07-29] MEDS: ASPIRIN 81MG EC TABLET PO SCH (08:30)
[2019-07-29] MEDS: PANTOT AC/MIN OIL/PET HY-PHL OINT (AQUAPHOR) TOP SCH (08:31)
[2019-07-29] MEDS: NYSTATIN POWDER 15GM TOP SCH ×3 (08:31→17:22)
[2019-07-29] MEDS: INSULIN LISPRO 100 UNITS/ML SUBCUT SCH ×4 (08:39→20:12)
[2019-07-29 08:43] LABS: PHOSPHORUS 3.9 mg/dL (2.5-4.9)
[2019-07-29] MEDS: ENOXAPARIN 40MG/0.4ML SYR SUBCUT SCH (11:39)
[2019-07-29 12:00] VITALS: BP 137/53
[2019-07-29 16:00] VITALS: BP 114/64
[2019-07-29 20:00] VITALS: BP 141/47
[2019-07-29] MEDS: GABAPENTIN 100MG CAPSULE PO SCH (20:14)
[2019-07-29] MEDS: ATORVASTATIN CALCIUM 20MG TABLET PO SCH (20:15)
[2019-07-30] VITALS: BP 147/49
[2019-07-30 04:00] VITALS: BP 167/49
[2019-07-30 05:02] LABS: BASOPHILS % 1.1 % (0.0-2.0); EOSINOPHILS % 6.6 % (0.0-5.0); HEMATOCRIT. 27.6 % (36.0-48.0); HEMOGLOBIN. 8.8 g/dL (12.0-16.0); LYMPHOCYTES % 25.4 % (20.0-50.0); MEAN CORPUSCULAR VOLUME 90.4 fL (81.0-99.0); MEAN PLATELET VOLUME 9.5 fl (7.4-10.4); MONOCYTES % 7.4 % (2.0-8.0); NEUTROPHILS % 59.5 % (40.0-76.0); PLATELET 206 x1000/uL (130-400); RED BLOOD CELL COUNT 3.05 mill/uL (4.2-5.4); RED CELL DISTRIBUTION WIDTH 19.4 % (11.6-14.6)
[2019-07-30] MEDS: SODIUM CHLORIDE 0.9% INJ 3ML FLUSH IVF SCH ×2 (06:00→14:06)
[2019-07-30] MEDS: METOPROLOL TARTRATE 50MG TABLET PO SCH ×2 (06:01→16:55)
[2019-07-30] MEDS: CLONIDINE 0.3MG TABLET PO SCH ×2 (06:01→13:51)
[2019-07-30] MEDS: BLOOD SUGAR DIAGNOSTIC STRIP TEST SCH ×3 (06:53→16:55)
[2019-07-30 08:22] LABS: PHOSPHORUS 4.2 mg/dL (2.5-4.9)
[2019-07-30] MEDS: ASPIRIN 81MG EC TABLET PO SCH (08:25)
[2019-07-30] MEDS: NIFEDIPINE XL 60MG TAB PO SCH (08:25)
[2019-07-30] MEDS: LOSARTAN POTASSIUM 25 MG TABLET PO SCH (08:25)
[2019-07-30] MEDS: DOCUSATE SODIUM 250MG CAPSULE PO SCH (08:25)
[2019-07-30] MEDS: INSULIN LISPRO 100 UNITS/ML SUBCUT SCH ×3 (08:26→16:56)
[2019-07-30] MEDS: CITRIC ACID/SODIUM CITRATE SOLN 30ML UDC PO SCH ×2 (08:26→08:29)
[2019-07-30] MEDS: MINOXIDIL 2.5MG TABLET PO SCH (08:26)
[2019-07-30] MEDS: PANTOT AC/MIN OIL/PET HY-PHL OINT (AQUAPHOR) TOP SCH (08:33)
[2019-07-30] MEDS: NYSTATIN POWDER 15GM TOP SCH ×3 (08:33→16:35)
[2019-07-30] MEDS: ENOXAPARIN 40MG/0.4ML SYR SUBCUT SCH (10:55)
[2019-07-30] MEDS ORDERED: SODIUM BICARBONATE 650 MG TABLET PO SCH (12:00)
[2019-07-30 16:27] VITALS: BP 148/52
[2019-07-30] MEDS ORDERED: EPOETIN ALFA 10000UNITS/ML VIAL SUBCUT NR (21:00)
[2019-07-31] MEDS ORDERED: LOSARTAN POTASSIUM 25 MG TABLET PO SCH (09:00)
== END 2019-07-30 17:58 | DRG 710 ==
LOC: ER 23:59 → 6WST 07-11 01:41 → EDBEDREQTM 07-11 01:57 → EDBEDREQ 07-11 01:57 → EDBEDREQSVC 07-11 01:57 → ENRESERV 07-11 08:25 → 6EST 07-16 19:26
PROVIDERS: ADMIT Internal Medicine; ATTEND Internal Medicine
PROC: 0KBV0ZZ Excision of Right Foot Muscle, Open Approach (ICD-10-PCS; principal; 2019-07-12)
PROC: 30233N1 Transfusion of Nonautologous Red Blood Cells into Peripheral Vein, Percutaneous Approach (ICD-10-PCS; 2019-07-24)
DX: A41.9 Sepsis, unspecified organism (principal); G93.41 Metabolic encephalopathy; E43 Unspecified severe protein-calorie malnutrition; N17.9 Acute kidney failure, unspecified; E87.2 Acidosis; I12.0 Hypertensive chronic kidney disease with stage 5 chronic kidney disease or end stage renal disease; K31.84 Gastroparesis; E11.52 Type 2 diabetes mellitus with diabetic peripheral angiopathy with gangrene; N18.6 End stage renal disease; T87.53 Necrosis of amputation stump, right lower extremity; Y83.5 Amputation of limb(s) as the cause of abnormal reaction of the patient, or of later complication, without mention of misadventure at the time of the procedure; D63.1 Anemia in chronic kidney disease; E11.43 Type 2 diabetes mellitus with diabetic autonomic (poly)neuropathy; L03.115 Cellulitis of right lower limb; E11.42 Type 2 diabetes mellitus with diabetic polyneuropathy; E87.5 Hyperkalemia; E11.621 Type 2 diabetes mellitus with foot ulcer; R26.2 Difficulty in walking, not elsewhere classified; E11.65 Type 2 diabetes mellitus with hyperglycemia; L97.519 Non-pressure chronic ulcer of other part of right foot with unspecified severity; E11.22 Type 2 diabetes mellitus with diabetic chronic kidney disease; N39.0 Urinary tract infection, site not specified; Z89.411 Acquired absence of right great toe; I69.354 Hemiplegia and hemiparesis following cerebral infarction affecting left non-dominant side; Z79.899 Other long term (current) drug therapy; Z82.49 Family history of ischemic heart disease and other diseases of the circulatory system; Z68.38 Body mass index [BMI] 38.0-38.9, adult
CPT/HCPCS: 36415; 71045; 80048; 80061; 80202; 81003; 82962; 83605; 83735; 83880; 84100; 84134; 84145; 84439; 84443; 84484; 85651; 86140; 86850; 86900; 86920; 87077; 87186; 93005; 96365; 96368; 97110; 97162; 97530; 99291; J0885; J1650; J1815; J1956; J2543; J3370; J7030; J7040; J7060; P9016